=== PATIENT | female | born 1995 | race African-American/Black ===

== ENCOUNTER → 2016-06-20 | Outpatient (CLI) | payer OTHER | END | disposition home or self-care (01) | LOC: C.RDSM 13:17 | PROVIDERS: ATTEND Physical Medicine & Rehabilitation Sports Medicine | DX: M25.572 Pain in left ankle and joints of left foot (principal); M25.571 Pain in right ankle and joints of right foot ==

== ENCOUNTER → 2016-06-22 | Outpatient (CLI) | payer OTHER ==
--- NOTE | 2016-06-22 13:32 | DIAGNOSTIC IMAGING REPORT ---
CT SCAN OF THE LEFT ANKLE WITHOUT IV CONTRAST CLINICAL HISTORY: Osteochondritis of the left ankle. COMPARISON STUDY: MRI of the left ankle dated 02/25/2016. Radiographs of the left ankle dated 06/20/2016. TECHNIQUE: CT scan of the left ankle was performed from the distal tibia and fibula to the foot. Images were reviewed in the axial, sagittal, and coronal planes. IV contrast was not administered for this examination. 3-D reformats were created and assessed. FINDINGS: The skeletal structures are well mineralized. No fracture is seen. There is sclerotic change within the medial aspect of the talar dome. Focal osteochondritis is again identified in the medial talar dome, best seen on coronal image #48 and measures at least 9 mm. There is no collapse or loose fragment suspected. There is also mild sclerosis within the overlying tibia. No additional bony abnormality is identified. There is no evidence of joint effusion. There is maintenance of normal fat within the sinus tarsi. The Achilles tendon, as well as the flexor, extensor, and peroneal tendons, is intact as visualized by CT. The regional musculature is normal in bulk. IMPRESSION: 1. Osteochondritis is again noted in the medial aspect of the talar dome with surrounding bony sclerosis. This could be reactive or less likely represent developing osteonecrosis. 2. There is no evidence of an unstable fragment or bony collapse involving the talus. 3. There is also developing sclerotic change in the overlying tibia, likely reactive. Dictated: 06/22/2016 1:13 PM Transcribed: 06/22/2016 1:31 PM [email or web address] Electronically signed by: Compa Huerta M.D. 06/22/2016 1:52 PM Dictated Date/Time: 06/22/2016 1:13 PM
== END | disposition home or self-care (01) ==
LOC: C.CTS 12:26
PROVIDERS: ATTEND Physical Medicine & Rehabilitation Sports Medicine
DX: M93.972 Osteochondropathy, unspecified, left ankle and foot (principal)

== ENCOUNTER → 2016-07-07 | Day surgery (SDC) | payer OTHER ==
[~2016-07-07] VITALS: Ht 188 cm; Wt 75.0 kg
[~2016-07-07] MED LIST: ATROPINE SULFATE 0.1 MG/ML 5ML SYR IV PRN; BUPIVACAINE 0.5 % 5 MG/1 ML MPF 30ML VIAL ONE; CEFAZOLIN 2000 MG/60 ML D5W IV SCH; DEXAMETHASONE SOD INJ 4 MG/ML VIAL IV PRN; DEXAMETHASONE SOD INJ 4 MG/ML VIAL ONE; EpHEDrine SULFATE INJ 50 MG/ML AMP IV PRN; FENTANYL CITRATE INJ 50 MCG/1 ML 2 ML VIAL IV PRN; FENTANYL CITRATE INJ 50 MCG/1 ML 2 ML VIAL ONE; KETOROLAC TROMETHAMINE 30 MG/ML VIAL IV. PRN; LABETALOL HCL IV 5 MG/ML 20ML IV PRN; LACTATED RINGER'S 1000ML 1,000 ML IV SCH; LIDOCAINE HCL 1% MPF 2 ML VIAL ONE; LIDOCAINE HCL 2% 2 ML VIAL (20MG/ML) ONE; METHYLENE BLUE 1% 1 ML VIAL ONE; METOCLOPRAMIDE HCL INJ 5 MG/ML 2 ML VIAL IV PRN; MIDAZOLAM HCL 1 MG/ML 2ML VIAL ONE; MoRPHine SULFATE 10 MG/ML CARP/VIAL IV PRN; MoRPHine SULFATE PF 1 MG/ML 10 ML AMP/VIAL ONE; ONDANSETRON INJ 2 MG/ML 2 ML VIAL IV PRN; ONDANSETRON INJ 2 MG/ML 2 ML VIAL ONE; PATIENT'S ALLERGY INFO NEEDS ENTERED SCH; PHENYLEPHRINE 100MCG/ML 5ML SYR IV PRN; PROPOFOL IV EMULSION 10 MG/ML 20 ML VIAL IV ONE; ROPIVACAINE 0.5% 5 MG/ML 30 ML VIAL ONE; SODIUM CHLORIDE 0.9% 1000ML 1,000 ML IV SCH
--- NOTE | 2016-07-07 06:44 | History & Physical Bridge Note ---
H&P Re-Evaluation Bridge Note: I have examined the patient, reviewed the History & Physical and in the interval since the performance of the History & Physical I have noted the following changes of clinical significance: No changes noted
--- NOTE | 2016-07-07 06:46 | Discharge Instructions ---
Discharge Instructions Visit Reason for Visit: Left Ankle Osteochondral Defect Discharge Discharge Diagnosis / Problem: same Discharge Goals Goal(s): Decrease discomfort, Improve function Medications Stopped Medications Name(s): na Restart Stopped Medication(s): use scripts as directed Activity Recommendations Activity Limitations: as noted below Lifting Limitations: until after follow-up appointment Exercise/Sports Limitations: until after follow-up appointment May Resume Sexual Activity: when tolerated Shower/Bathe: keep incision dry Driving or Machine Use: resume 1 day after discharge Weightbearing Status: Left non-weightbearing Anesthesia . Post Anesthesia Instructions: If you have had General Anesthesia or IV Sedation: * Do not drive today. * Resume driving when surgeon permits. * Do not make important decisions or sign legal documents today. * Call surgeon for: 1. Temperature elevations greater than 101 degrees F. 2. Uncontrollable pain. 3. Excessive bleeding. 4. Persistent nausea and vomiting. 5. Medication intolerance (nausea, vomiting or rash). * For nausea and vomiting use only clear liquids such as: tea, soda, bouillon until nausea subsides, then gradually increase diet as tolerated. * If you have any concerns or questions, call your surgeon's office. If physician is unavailable and it is an emergency, call 911 or go to the nearest emergency room. . Instructions / Follow-Up Instructions / Follow-Up DIET: * Resume previous diet. MEDICATIONS: * Please take your prescriptions as instructed at your pre-op appointment and/ or see medication discharge instructions listed above. * If concerns develop, call your physician's office at . SPECIAL CARE INSTRUCTIONS: * Ice/Elevate as instructed. * Keep dressing clean, dry, intact. * Your surgical extremity may be discolored due to prepping agents used on the skin. A bluish-green tint is a normal variant and should not cause alarm. Call your doctor at [phone] if: * Temperature above 101 degrees * Pain not relieved by pain medicine ordered * There is increased drainage or redness from any incision * You have any unanswered questions, problems or concerns. FOLLOW UP VISIT: * If not already scheduled, please call the office at to schedule a follow-up appointment. Diet Recommendations Recommended Home Diet: no limitations Procedures Procedures Performed: left ankle scope and debridement Pending Studies Studies pending at discharge: no School Instructions Return To School: 1 day Medical Emergencies . Who to Call and When: Medical Emergencies: If at any time you feel your situation is an emergency, please call 911 immediately. . Non-Emergent Contact Non-Emergency issues call your: Specialist Call Non-Emergent contact if: temperature is above 101.5 . . "Provider Documentation" section prepared by Kendell Amato.
[2016-07-07 06:48] VITALS: Ht 188 cm; Wt 75.0 kg
[2016-07-07] MEDS: LACTATED RINGER'S 1000ML 1,000 ML IV SCH ×2 (06:58→09:45)
--- NOTE | 2016-07-07 09:13 | [facility] Post Operative Brief Note ---
Immediate Operative Summary Operative Date Jul 07, 2016. Pre-Operative Diagnosis Left Ankle Osteochondral Defect Post-Operative Diagnosis Chondral Fracture Distal Tibia, Osteocondritis Talus/impingement Procedure(s) Performed Left Ankle Arthroscopic Debridement Osteochondral Defect Talus, Microfracture Talus, Excision Osteophytes Surgeon Dr. Ana Lilia Amato Chief Architect Surgeon(s) Tito Prieto PA-C Estimated Blood Loss TRACE Findings see op note Fluids (cc crystalloids) 700cc Specimens none Drains none Anesthesia block/lma Complication(s) None Disposition Recovery Room / PACU
--- NOTE | 2016-07-07 09:25 | OPERATIVE REPORT ---
DATE OF OPERATION: 07/07/2016 SURGEON: Kendell Amato MD. ROBOTIC WELD TECHNICIAN: Tito Prieto PA-C. No resident or fellow available. 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 POSTOPERATIVE DIAGNOSIS: Same with chondral injury anterior medial distal tibia. OPERATIONS PERFORMED: 1. Exam under anesthesia. 2. Diagnostic arthroscopy. 3. Arthroscopic debridement chondral lesion tibia with microfracture. 4. Arthroscopic debridement osteochondritis dissecans talus with microfracture. 5. Arthroscopic debridement anterior talar neck osteophyte. 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 The providers all agreed that this would be the best choice at this point in time in her carrier. DESCRIPTION OF PROCEDURE: The patient appropriately identified, site verified, consent verified, 2 grams of Ancef confirmed as being given. The left lower extremity was prepped and draped in usual routine fashion with a calf tourniquet. Tourniquet inflated to 250 mmHg after exsanguination of limb with a rubber Esmarch bandage. Prior to this, the ankle was sterilely injected over the portals which were marked preoperatively to avoid injury to the anterior tib tendon and the extensor digitorum tendon. The ankle was injected and the portals were injected prior to prepping and draping. Once this tourniquet was inflated, the total tourniquet time was approximately 54 minutes. The anteromedial and anterolateral portals and skin scratches were made and blunt dissection carried down to the capsule. The joint was then entered simultaneously from medial and lateral with no issues. Inspection of the joint revealed marked synovial hypertrophy, this was all debrided. There was a huge anterior talar neck osteophyte which was resected. There was a distal tibia osteophyte with an articular flap in the joint. This was all removed and then burred down and shaved down. The OCD lesion was then identified and probed. It did not appear to have any significant loose bony piece. The bony shell appeared to be intact. The area was curetted and then microfractured both on the tibial side and the talus side. Obviously, this creates a higher level of potential failure based on the bipolar nature of the disease; however, the distal tibia disease was very anterior. Hopefully, this will be in athlete's favor. The ankle was then copiously debrided multiple times to remove any kind of micro fragments of bone and loose cartilage and ensuring that there was none, the procedure was then terminated. The procedure estimated of the cartilage defect was approximately 0.25 cm x 0.75 cm of the talus and 0.25 cm x 0.25 cm on the distal tibia. Once all instruments and fluid removed, the portals were closed with vertical mattress 4-0 nylon suture, appropriately dressed and patient transferred to recovery room in satisfactory condition having tolerated the procedure well. Estimated blood loss was trace, 700 mL of fluid, and deep venous thrombosis prophylaxis per protocol. I attest to the content of the Intraoperative Record and any orders documented therein. Any exceptions are noted below. GHISLAINED
[2016-07-07 10:06] VITALS: TEMP 37
--- NOTE | 2016-07-07 10:33 | Anesthesia Progress Nt - [facility] ---
Anesthesia Post Op Note Date & Time Jul 07, 2016 at 10:33 Vital Signs Pain Intensity: 0 Vital Signs Past 12 Hours Date Time Temp Pulse Resp B/P Pulse Ox O2 Delivery O2 Flow Rate FiO2 07/07/16 10:06 50 17 99 07/07/16 10:06 37 50 17 07/07/16 10:03 113/57 07/07/16 10:01 47 16 07/07/16 10:01 44 16 99 07/07/16 09:58 122/59 07/07/16 09:56 43 15 100 07/07/16 09:56 43 15 07/07/16 09:54 97/67 07/07/16 09:51 44 16 98 07/07/16 09:51 44 16 07/07/16 09:48 115/62 07/07/16 09:46 42 16 100 07/07/16 09:46 46 16 07/07/16 09:43 111/55 07/07/16 09:41 44 15 07/07/16 09:41 43 15 100 07/07/16 09:38 109/57 07/07/16 09:36 43 15 07/07/16 09:36 44 15 100 07/07/16 09:33 111/61 07/07/16 09:31 47 17 100 07/07/16 09:31 48 17 07/07/16 09:28 110/61 07/07/16 09:26 46 16 07/07/16 09:26 45 16 100 07/07/16 09:23 109/59 07/07/16 09:21 46 15 100 07/07/16 09:21 46 15 07/07/16 09:18 118/65 07/07/16 09:17 36.6 80 12 114/72 100 Mask 6 07/07/16 09:16 63 17 07/07/16 09:16 70 17 100 07/07/16 09:14 114/72 07/07/16 07:51 0 07/07/16 07:50 52 45 100 07/07/16 07:50 52 07/07/16 07:48 114/58 07/07/16 07:45 48 100 Mask 3 07/07/16 07:45 48 07/07/16 07:45 44 21 100 07/07/16 07:43 118/64 07/07/16 07:40 56 12 100 07/07/16 07:40 55 07/07/16 07:39 13 116/62 07/07/16 07:38 115/59 07/07/16 07:37 116/62 07/07/16 07:35 61 0 07/07/16 07:30 66 0 07/07/16 07:25 54 0 07/07/16 07:20 49 0 07/07/16 07:15 48 0 07/07/16 07:10 62 0 07/07/16 07:05 50 0 07/07/16 07:00 62 0 07/07/16 06:37 36.7 48 16 124/68 98 Room Air Notes Mental Status: alert / awake / arousable, participated in evaluation Pt Amnestic to Procedure: Yes Nausea / Vomiting: adequately controlled Pain: adequately controlled Airway Patency, RR, SpO2: stable & adequate BP & HR: stable & adequate Hydration State: stable & adequate Anesthetic Complications: no major complications apparent
--- NOTE | 2016-07-07 10:41 | OPERATIVE REPORT ---
DATE OF OPERATION: 07/07/2016 PREOPERATIVE DIAGNOSIS: Left ankle impingement with osteochondritis dissecans of the talus. POSTOPERATIVE DIAGNOSIS: Left ankle same with chondral injury of the anterior medial and distal tibia. PROCEDURE: Left ankle arthroscopy, arthroscopic debridement of chondral lesion of the tibia with microfracture, arthroscopic debridement of osteochondritis dissecans of the talus with microfracture, and debridement of anterior talar neck osteophyte. SURGEON: Dr. Amato. SUPERINTENDENT BUILDING: Tito Prieto PA-C. HISTORY OF PRESENT ILLNESS: This 20-year-old -[place] female presented to the office with complaints of intractable ankle pain and was unable to play basketball. The patient elected to proceed with surgical intervention after being educated about potential risks and outcomes. OPERATION: The patient was taken to the operating room where she was given general anesthetic. She was prepped and draped in the usual sterile fashion. Please see Dr. Amato's operative report for specifics of the procedure. I was present for the entire case from initial patient positioning through final wound closure. Assistance was provided in patient positioning, arthroscopy, and final wound closure. The patient was taken to the recovery room in satisfactory condition. I attest to the content of the Intraoperative Record and any orders documented therein. Any exceptio ns are noted below.
[2016-07-07 10:54] VITALS: BP 107/61; PULSE 61; O2SAT 100
== END | disposition home or self-care (01) ==
LOC: X.SURG 06:27
PROVIDERS: ATTEND Physical Medicine & Rehabilitation Sports Medicine
DX: M19.072 Primary osteoarthritis, left ankle and foot (principal); M93.272 Osteochondritis dissecans, left ankle and joints of left foot; M95.8 Other specified acquired deformities of musculoskeletal system

== ENCOUNTER → 2016-08-21 | Outpatient (CLI) | payer OTHER | END | disposition home or self-care (01) | LOC: C.RDSM 08:30 | PROVIDERS: ATTEND Physical Medicine & Rehabilitation Sports Medicine | DX: M25.572 Pain in left ankle and joints of left foot (principal) ==

== ENCOUNTER → 2016-12-07 | Outpatient (CLI) | payer OTHER | END | disposition home or self-care (01) | LOC: C.RDSM 08:17 | PROVIDERS: ATTEND Physical Medicine & Rehabilitation Sports Medicine | DX: J30.2 Other seasonal allergic rhinitis (principal); M77.52 Other enthesopathy of left foot and ankle ==

== ENCOUNTER → 2016-12-26 | Outpatient (CLI) | payer OTHER ==
--- NOTE | 2016-12-26 09:54 | DIAGNOSTIC IMAGING REPORT ---
RIGHT ANKLE MIN 3 VIEWS HISTORY: 21 years Female RIGHT ANKLE PAIN Right COMPARISON: Right ankle radiographs 06/20/2016 TECHNIQUE: 3 views of the right ankle FINDINGS: Ankle mortise is well maintained and anatomically positioned. The talar dome is smooth without osteochondral defect. Bone mineralization is within normal limits. No acute fracture or dislocation. There is pes planus on this nonweightbearing study. Negative for radiopaque foreign body. IMPRESSION: 1. No acute bony abnormality . 2. Pes planus deformity. The above report was generated using voice recognition software. It may contain grammatical, syntax or spelling errors. Electronically signed by: Ayan Morales M.D. 12/26/2016 9:52 AM Dictated Date/Time: 12/26/2016 9:51 AM
== END | disposition home or self-care (01) ==
LOC: C.RDSM 12-25 12:18
PROVIDERS: ATTEND Internal Medicine
DX: M21.41 Flat foot [pes planus] (acquired), right foot (principal); M25.571 Pain in right ankle and joints of right foot

== ENCOUNTER → 2017-04-30 | Outpatient (CLI) | payer OTHER ==
--- NOTE | 2017-04-30 13:59 | DIAGNOSTIC IMAGING REPORT ---
MRI OF THE RIGHT KNEE CLINICAL HISTORY: Right knee pain. Athletic injury. COMPARISON STUDY: Radiograph of the right knee dated 04/30/2017. TECHNIQUE: MRI of the right knee was performed utilizing proton density, T1, and T2-weighted sequences in the axial, sagittal, coronal planes. IV contrast was not administered for this examination. FINDINGS: Menisci: The medial and lateral menisci are intact. Ligaments: The anterior and posterior cruciate ligaments are intact. The medial and lateral collateral ligaments are intact. Fluid overlying the lateral collateral ligament complex is likely related to soft tissue injury. Extensor mechanism: The extensor mechanism is intact. Hoffa's fat pad is normal in appearance. Articular cartilage and bone: The articular cartilage is intact and well maintained all 3 compartments. No significant marrow edema or bony contusion is identified. Joint effusion: There is a moderate joint effusion. Soft tissues: There is significant subcutaneous soft tissue edema and fluid identified along the lateral aspect of the knee. There is also edema within the deep compartments of the lateral knee. The musculature surrounding the knee joint is normal in bulk. Intramuscular edema is identified involving the lateral head of the gastrocnemius muscle as well as the partially visualized extensor musculature in the anterolateral upper calf. IMPRESSION: 1. The cruciate and collateral alignment appear intact. No meniscal injury is seen. 2. No bony or cartilaginous abnormality is identified. 3. There is significant subcutaneous and deep soft tissue edema identified involving the lateral aspect of the knee. 4. Intramuscular edema is present within the lateral head of the gastrocnemius as well as the anterolateral extensor musculature in the upper calf suggesting strain. 5. Joint effusion. Electronically signed by: Compa Huerta M.D. 04/30/2017 1:57 PM Dictated Date/Time: 04/30/2017 1:39 PM
== END | disposition home or self-care (01) ==
LOC: C.MRI 11:49
PROVIDERS: ATTEND Physical Medicine & Rehabilitation Sports Medicine
DX: M25.569 Pain in unspecified knee (principal); S83.501A Sprain of unspecified cruciate ligament of right knee, initial encounter; X58.XXXA Exposure to other specified factors, initial encounter; R60.0 Localized edema; M25.461 Effusion, right knee; M79.9 Soft tissue disorder, unspecified

== ENCOUNTER → 2017-04-30 | Outpatient (CLI) | payer OTHER | END | disposition home or self-care (01) | LOC: C.RDSM 14:28 | PROVIDERS: ATTEND Physical Medicine & Rehabilitation Sports Medicine | DX: M25.569 Pain in unspecified knee (principal) ==